=== PATIENT | male | born 1945 | race Caucasian/White ===

== ENCOUNTER 2025-07-14 08:30 | Outpatient (RCR) | payer MEDICARE, SELFPAY | END 2025-07-16 06:15 | disposition home or self-care (01) | LOC: HO.CR 08:30 | PROVIDERS: PCP Internal Medicine; Visit Provider Nurse Practitioner Primary Care | DX: I25.810 Atherosclerosis of coronary artery bypass graft(s) without angina pectoris (principal) | CPT/HCPCS: 93798 ==